=== PATIENT | female | born 1985 | race Caucasian/White ===

== ENCOUNTER 2018-02-19 11:31 | Outpatient (CLI) | payer BC ==
[2018-02-19 12:51] VITALS: BP 131/68; PULSE 90; RESP 16; TEMP 97.6
--- NOTE | 2018-03-11 20:07 | P.MSEPDOC ---
Presenting Problems - Arrival Data Date of Arrival on Unit: 02/19/18 Time of Arrival on Unit: 11:31 Mode of Transport: Ambulatory - Complaint OB-Reason for Admission/Chief Complaint: Possible Onset of Labor Comment: 0800 Medical History - Information : 3 Para: 2 Term: 2 : 0 Abortions: Spontaneous or Elective: 0 Number of Living Children: 2 - Gestational Age Gestational Age by BIGG (wks/days): 38 Weeks and 2 Days Review of Systems - Review of Systems Constitutional: No problems Breast: No problems ENT: No problems Cardiovascular: No problems Respiratory: No problems Gastrointestinal: No problems Genitourinary: No problems Musculoskeletal: No problems Neurological: No problems Skin: No problems Vital Signs - Temperature Temperature: 97.6 F Temperature Source: Temporal Artery Scan - Pulse Right Brachial Pulse Rate: 90 Pulse Assessment Method: Automatic Cuff - Respirations Respiratory Rate: 16 Oxygen Delivery Method: Room Air Oxygen Flow Rate: 99 - Blood Pressure Right Arm Blood Pressure: 131/68 Blood Pressure Mean: 89 Blood Pressure Source: Automatic Cuff Medical Screen Scoring (Pre) - Cervical Exam Dilation: 1-3 cm = 1 - Uterine Contractions Frequency: > or = 36 weeks =2 Duration: > 40 seconds = 2 - Maternal Vital Signs Maternal Temperature: N/A Maternal Blood Pressure: N/A Signs of Preeclampsia: N/A Maternal Respirations: N/A - Pain Assessment Pain Location and Character: Abdomen Pain Scale Used: Numeric (1 - 10) Pain Intensity: 5 Pain Description: *Acute, Tightness Pain Frequency: Intermittent Pain Duration: 4 Pain Duration Units: Hours Pain Behavior: Facial Grimacing Pain Aggravating Factors: Contractions - Maternal Trauma Maternal Trauma: N/A - Assessment Baseline FHR: 135 Heart Rate - NICHD Category: Category I (Normal) = 0 NST: Reactive Position: N/A - Total Score Total Score (Pre): 5 - Level of Risk Level of Risk: Low (0-5) Medical Screen Scoring (Post) - Post Treatment Level of Risk Post Treatment Level of Risk: Low (0-5) Physician Notification (Post) - Physician Notified Physician Notified Date: 02/19/18 Physician Notified Time: 14:25 Spoke With: Annabelle Rubio Order Received: Yes (discharge to home) Disposition - Disposition OB Disposition: Discharge to home, Written follow up instructions reviewed Discharge Date: 02/19/18 Discharge Time: 14:26 I agree with the RN Medical Screening Exam: Yes Risk & Benefit of care provided described in d/c instruction: Yes Diagnosis: FALSE LABOR AT OR AFTER 37 COMPLETED WEEKS OF GESTATION
== END 2018-02-19 14:26 | disposition home or self-care (01) ==
LOC: FBPOP 11:31
PROVIDERS: ATTEND Obstetrics & Gynecology
DX: O47.1 False labor at or after 37 completed weeks of gestation (principal); Z3A.38 38 weeks gestation of pregnancy
CPT/HCPCS: 59025; 99213

== ENCOUNTER 2018-02-20 04:00 | Outpatient (CLI) | payer BC ==
[2018-02-20 05:41] VITALS: BP 119/72; PULSE 81; RESP 16; TEMP 97.5
--- NOTE | 2018-03-11 20:08 | P.MSEPDOC ---
Presenting Problems - Arrival Data Date of Arrival on Unit: 02/20/18 Time of Arrival on Unit: 04:03 Mode of Transport: Wheelchair Vital Signs - Temperature Temperature: 97.5 F Temperature Source: Temporal Artery Scan - Pulse Right Brachial Pulse Rate: 81 Pulse Assessment Method: Automatic Cuff - Respirations Respiratory Rate: 16 Oxygen Delivery Method: Room Air - Blood Pressure Right Arm Blood Pressure: 119/72 Blood Pressure Mean: 87 Blood Pressure Source: Automatic Cuff Medical Screen Scoring (Post) - Cervical Exam Dilation: 1-3 cm = 1 Effacement: More than 50% = 2 Membranes: Intact - Uterine Contractions Frequency: > or = 36 weeks =2 Duration: > 40 seconds = 2 Intensity: Contraction palpated strong = 1 - Maternal Vital Signs Maternal Temperature: N/A - Pain Assessment Pain Location and Character: Abdomen Pain Scale Used: Numeric (1 - 10) Pain Intensity: 7 Pain Management Goal: 2 Pain Description: *Acute, Cramping Pain Radiation Location: no Pain Frequency: Frequent Pain Duration: 3 Pain Duration Units: Hours Pain Behavior: Vocalization Pain Aggravating Factors: Contractions - Maternal Trauma Maternal Trauma: N/A - Assessment Heart Rate: 135 Heart Rate - NICHD Category: Category I (Normal) = 0 NST: Reactive - Total Score Total Score (Post): 8 - Post Treatment Level of Risk Post Treatment Level of Risk: Medium (6-9) Physician Notification (Post) - Physician Notified Physician Notified Date: 02/20/18 Physician Notified Time: 05:20 Spoke With: Annabelle Rubio Order Received: No - Notification Comment Comment: D/c home, no cervical change. Disposition - Disposition OB Disposition: Discharge to home, Written follow up instructions reviewed Discharge Date: 02/20/18 Discharge Time: 05:20 I agree with the RN Medical Screening Exam: Yes Risk & Benefit of care provided described in d/c instruction: Yes Diagnosis: FALSE LABOR AT OR AFTER 37 COMPLETED WEEKS OF GESTATION
== END 2018-02-20 05:25 | disposition home or self-care (01) ==
LOC: FBPOP 04:00
PROVIDERS: ATTEND Obstetrics & Gynecology
DX: O47.1 False labor at or after 37 completed weeks of gestation (principal); Z3A.00 Weeks of gestation of pregnancy not specified
CPT/HCPCS: 59025; 99213

== ENCOUNTER 2018-03-03 09:31 | Inpatient (IN) | payer BC ==
[2018-03-09] MEDS: LACTATED RINGERS 1,000 ML IV SCH ×2 (06:05→10:11)
[2018-03-09] MEDS ORDERED: TERBUTALINE 1 MG/ML VIAL SQ PRN (06:11)
[2018-03-09] MEDS ORDERED: CARBOPROST TROMETHAMINE 250 MCG/ML 1 ML AMP IM PRN (06:11)
[2018-03-09] MEDS ORDERED: AMPICILLIN 2,000 MG in SODIUM CHLORIDE 0.9% 100 ML IVPB STA (06:11)
[2018-03-09] MEDS ORDERED: OXYTOCIN 10 UNIT/ML 1 ML VIAL IM PRN (06:11)
[2018-03-09] MEDS ORDERED: OXYTOCIN 20 UNITS/1000 ML NS 1,000 ML IV SCH ×2 (06:11→12:38)
[2018-03-09] MEDS ORDERED: METHYLERGONOVINE 0.2 MG/ML 1 ML AMP IM PRN (06:11)
[2018-03-09] MEDS ORDERED: LIDOCAINE 0.5% (PF) 5 MG/ML (50 ML SDV) SQ PRN (06:11)
[2018-03-09 06:23] LABS: Basophils % (A) 0 %; Eosinophils # (A) 0.1 k/uL (0-0.7); Eosinophils % (A) 1 %; HCT 38.5 % (34.0-46.0); Lymphocytes # (A) 1.8 k/uL (1.0-4.8); Lymphocytes % (A) 33 %; MCH 29.7 pg (25.0-35.0); MCHC 33.9 g/dL (31.0-37.0); MCV 87.8 fL (80.0-100.0); Mean Platelet Volume 7.6; Monocytes # (A) 0.3 k/uL (0-1.0); Monocytes % (A) 6 %; Neutrophils # (A) 3.1 k/uL (1.3-7.7); Neutrophils % (A) 57 %; Platelet Count 210 k/uL (150-450); RBC 4.38 m/uL (3.80-5.40); RDW 12.9 % (11.5-15.5); WBC 5.5 k/uL (3.8-10.6)
--- NOTE | 2018-03-09 06:34 | P.HPOB ---
History of Present Illness H&P Date: 03/09/18 Chief Complaint: Induction of labor due to postdates This patient is a pleasant 32-year-old 3 para 2 female estimated date of confinement 03/03/2018 estimated gestational age 40-6/7 weeks gestation who is admitted to labor and delivery for requested induction of labor due to postdates . She is care is complicated by advanced for maternal age, she has declined any referral to maternal- medicine for genetic evaluation. She has been watched with growth ultrasounds and nonstress tests which have been normal. She did have an abnormal Glucola but a normal three-hour gtt. Patient at this time has requested induction of labor. Review of Systems Gastrointestinal: Reports heartburn Genitourinary: Reports Menstruation: Reports amenorrhea Past Medical History Additional Past Medical History / Comment(s): Narcolepsy. Patient is had 2 term vaginal deliveries 7 lbs. 2 oz. and 7 lbs. 3 oz. History of Any Multi-Drug Resistant Organisms: None Reported Past Surgical History: Orthopedic Surgery Additional Past Surgical History / Comment(s): bunion surgery bilateral feet, and wisdom teeth removed. Patient had a LEEP procedure done prior to her first . Past Anesthesia/Blood Transfusion Reactions: No Reported Reaction Past Psychological History: No Psychological Hx Reported Smoking Status: Never smoker Past Alcohol Use History: None Reported Past Drug Use History: None Reported - Past Family History Father Family Medical History: Diabetes Mellitus, Hypertension Medications and Allergies Home Medications Medication Instructions Recorded Confirmed Type Cholecalciferol [Vitamin D3] 1,000 unit PO DAILY 03/24/16 02/20/18 History Dextroamphetamine/Amphetamine 15 mg PO DAILY 03/24/16 02/20/18 History [Adderall] Pnv,Calcium 72/Iron/Folic Acid 1 each PO DAILY 03/24/16 02/20/18 History [ Plus Tablet] Allergies Allergy/AdvReac Type Severity Reaction Status Date / Time diphenhydramine AdvReac Confusion Verified 03/09/18 06:11 [From Benadryl] Exam Intake and Output 03/08/18 03/08/18 03/09/18 14:59 22:59 06:59 Other: Weight 75.75 kg - OBG Physical Exam Abdomen: bowel sounds normal, no diffuse tenderness, no bruit present, no guarding noted, no hepatomegaly, no splenomegaly, no mass Vulva: both: normal Vagina: normal moisture, no discharge Cervix: no lesion (Cervix is 3-4 cm dilated 80% effaced -2 station.), no discharge Uterus: enlarged (Fundal height is consistent with a term .) Results blood work shows she is O positive, rubella immune, RPR nonreactive, hepatitis B negative, Glucola was 206 with a normal three-hour gtt., growth ultrasounds been normal, group B strep was positive. Assessment and Plan Assessment: This is a pleasant 33-year-old 3 para 2 female 40-6/7 weeks gestation is admitted to labor and delivery for postdates induction of labor. Patient has a positive group B strep culture and therefore will be given IV antibiotics and Pitocin induction per protocol. Anticipate vaginal delivery. (1) Post-dates Current Visit: Yes Status: Acute Code(s): O48.0 - POST-TERM SNOMED Code(s): 82962298 (2) Group B streptococcal carriage complicating Current Visit: Yes Status: Acute Code(s): O99.820 - STREPTOCOCCUS B CARRIER STATE COMPLICATING SNOMED Code(s): 227705144427127 (3) Elderly multigravida in third trimester Current Visit: Yes Status: Acute Code(s): O09.523 - SUPERVISION OF ELDERLY MULTIGRAVIDA, THIRD TRIMESTER SNOMED Code(s): 550297197
[2018-03-09 07:14] VITALS: BMI 26.9
[2018-03-09] MEDS ORDERED: ROPIVACAINE 100 MG, fentaNYL (PF) 200 MCG in SODIUM CHLORIDE 0.9% 76 ML EPIDURAL ONE ×2 (09:53→12:53)
[2018-03-09] MEDS ORDERED: AMPICILLIN 1,000 MG in SODIUM CHLORIDE 0.9% 50 ML IVPB SCH (10:00)
[2018-03-09] MEDS ORDERED: diphenhydrAMINE 50 MG/ML 1 ML VIAL IVP PRN (12:38)
[2018-03-09] MEDS ORDERED: SIMETHICONE 80 MG CHEWABLE PO PRN (12:38)
[2018-03-09] MEDS ORDERED: WITCH HAZEL 1 EACH MED..PAD TOPICAL PRN (12:38)
[2018-03-09] MEDS ORDERED: diphenhydrAMINE 25 MG CAP PO PRN (12:38)
[2018-03-09] MEDS ORDERED: ACETAMINOPHEN TAB 325 MG TAB PO PRN (12:38)
[2018-03-09] MEDS ORDERED: HYDROCORTISONE 2.5% RECTAL CREAM 30 GM TUBE RECTAL PRN (12:38)
[2018-03-09] MEDS ORDERED: BENZOCAINE/MENTHOL SPRAY 1 GM/SPRAY AEROSOL TOPICAL PRN (12:38)
[2018-03-09] MEDS ORDERED: LANOLIN CREAM 5 GM TUBE TOPICAL PRN (12:38)
[2018-03-09] MEDS ORDERED: ZOLPIDEM 5 MG TAB PO PRN (12:38)
--- NOTE | 2018-03-09 12:42 | P.PROBDLV ---
Vaginal Delivery Note - . Vaginal Delivery Note: Normal spontaneous vaginal delivery viable male infant Apgars 8 and 9 delivery time is 1212 hrs. Please see dictated H&P for intimate details of this patient's admission. In brief summary this is a pleasant 33-year-old 3 para 2 female 40-6/7 weeks gestation admitted to labor and delivery for postdates induction of labor. On admission patient's approximate 4 cm dilated has artificial rupture membranes for clear fluid. Patient's labor is induced with Pitocin per protocol. She did receive antibiotics for positive group B strep culture. Patient's labor progressed she did have an episode after her epidural bradycardia that resolved with discontinuing her Pitocin and position changes. Patient continued to progress and did have 1 other episode of bradycardia but this again resolved with position changes. Patient did not require Pitocin after the epidural was placed. Patient got to complete pushes the head to the perineum. Posterior perineum is supported we have controlled delivery of the infant's head over the intact perineum. Mouth and nares are bulb suctioned. There is no evidence of a nuchal cord. With gentle downward traction we then have deliver the anterior and posterior shoulder and rest this infant's body. This is a vigorous viable male infant Apgars are 8 and 9 delivery time is 1212 hrs. After delivery of the infant the umbilical cord is allowed to pulsate and then doubly clamped and cut. Cord blood is obtained due to oh positive blood type status. Placenta spontaneously delivered intact. Inspection of perineum shows a first-degree posterior laceration is very small repaired with 3-0 Vicryl in the usual fashion. Excellent reapproximation is noted ARE correct 3. There are no complications. and mother stable delivery room.
[2018-03-09] MEDS: SENNOSIDES-DOCUSATE SODIUM 1 EACH TAB PO SCH ×2 (19:49→19:50)
[2018-03-09] MEDS: IBUPROFEN 600 MG TAB PO PRN (19:50)
[2018-03-10 06:07] VITALS: RESP 18
--- NOTE | 2018-03-10 06:57 | P.PNOBGVD ---
Subjective - Subjective Patient reports: Reports appetite normal, Reports voiding normally, Reports pain well controlled, Reports ambulating normally : doing well Objective - Latest Vital Signs Latest vital signs: Vital Signs Temp Pulse Resp BP Pulse Ox 03/10/18 04:00 97.9 F 92 18 122/75 100 03/09/18 20:00 97.6 F 89 18 128/79 100 03/09/18 15:58 97.6 F 75 16 120/59 03/09/18 14:40 81 16 121/62 03/09/18 14:10 76 16 139/59 03/09/18 13:40 76 16 128/61 03/09/18 13:25 97.5 F L 77 16 119/77 03/09/18 13:10 60 16 127/72 03/09/18 12:55 73 16 119/58 03/09/18 12:40 75 16 118/56 Intake and Output 03/09/18 03/09/18 03/10/18 14:59 22:59 06:59 Output Total 100 Balance -100 Output: Estimated Blood Loss 100 Other: # Voids 1 2 - Exam Lungs: bilateral: normal Chest: Normal S1, Normal S2 Extremities: Present: normal Abdomen: Present: normal appearance, soft Uterus: Present: normal, firm Assessment and Plan Assessment: day #1. Patient is resting without complaints wishes to go home. Vital signs are stable she is afebrile. Uterus is firm nontender and she is having normal lochia. My impression this is a normal course. Plan is to continue routine care discharge home later today. (1) Post-dates Current Visit: Yes Status: Acute Code(s): O48.0 - POST-TERM SNOMED Code(s): 25242597 (2) Group B streptococcal carriage complicating Current Visit: Yes Status: Acute Code(s): O99.820 - STREPTOCOCCUS B CARRIER STATE COMPLICATING SNOMED Code(s): 945333914864958 (3) Elderly multigravida in third trimester Current Visit: Yes Status: Acute Code(s): O09.523 - SUPERVISION OF ELDERLY MULTIGRAVIDA, THIRD TRIMESTER SNOMED Code(s): 151435313
--- NOTE | 2018-03-10 07:02 | P.DS ---
Providers Date of admission: 03/09/18 05:45 Expected date of discharge: 03/10/18 Attending physician: Tonny Mitchell Primary care physician: Stated None - Discharge Diagnosis(es) (1) Post-dates Current Visit: Yes Status: Acute (2) Group B streptococcal carriage complicating Current Visit: Yes Status: Acute (3) Elderly multigravida in third trimester Current Visit: Yes Status: Acute Hospital Course: Please see dictated H&P for intimate details of this patient's admission. Brief summary is a pleasant 33-year-old 3 para 2 female 40-6/7 weeks gestation admitted to labor and delivery for postdates induction of labor. Patient is admitted has uncomplicated induction of labor was on have a vaginal delivery viable male please see dictated delivery note. day # 1 patient wishes to go home was felt stable for discharge home follow up with me in 6 weeks. Procedures: Induction of labor normal vaginal delivery Patient Condition at Discharge: Good Plan - Discharge Summary New Discharge Prescriptions: New Ibuprofen [Motrin] 600 mg PO Q6HR PRN #40 tab PRN Reason: Mild Pain Or Fever >= 100.5 No Action Dextroamphetamine/Amphetamine [Adderall] 15 mg PO DAILY Cholecalciferol [Vitamin D3] 1,000 unit PO DAILY Pnv,Calcium 72/Iron/Folic Acid [ Plus Tablet] 1 each PO DAILY Discharge Medication List Cholecalciferol [Vitamin D3] 1,000 unit PO DAILY 03/24/16 [History] Dextroamphetamine/Amphetamine [Adderall] 15 mg PO DAILY 03/24/16 [History] Pnv,Calcium 72/Iron/Folic Acid [ Plus Tablet] 1 each PO DAILY 03/24/16 [ History] Ibuprofen [Motrin] 600 mg PO Q6HR PRN #40 tab 03/10/18 [Rx] Follow up Appointment(s)/Referral(s): Tonny Mitchell MD [STAFF PHYSICIAN] - 04/20/18 2:30 pm Patient Instructions/Handouts: Vaginal Delivery (DC) Activity/Diet/Wound Care/Special Instructions: No intercourse or anything per vagina for 6 weeks. Please call if any fever, chills, excessive vaginal bleeding, and/or abdominal pain. Discharge Disposition: HOME SELF-CARE
[2018-03-10] MEDS: IBUPROFEN 600 MG TAB PO PRN (07:33)
[2018-03-10] MEDS: SENNOSIDES-DOCUSATE SODIUM 1 EACH TAB PO SCH (07:33)
[2018-03-10 09:40] VITALS: BP 107/68; PULSE 88; TEMP 97.6
== END 2018-03-10 13:25 | disposition home or self-care (01) | DRG 806 ==
LOC: 4FBP 03-09 05:45
PROVIDERS: ADMIT Obstetrics & Gynecology; ATTEND Obstetrics & Gynecology
PROC: 10E0XZZ Delivery of Products of Conception, External Approach (ICD-10-PCS; principal; 2018-03-09)
PROC: 3E033VJ Introduction of Other Hormone into Peripheral Vein, Percutaneous Approach (ICD-10-PCS; 2018-03-09)
PROC: 10907ZC Drainage of Amniotic Fluid, Therapeutic from Products of Conception, Via Natural or Artificial Opening (ICD-10-PCS; 2018-03-09)
PROC: 0HQ9XZZ Repair Perineum Skin, External Approach (ICD-10-PCS; 2018-03-09)
PROC: 00HU33Z Insertion of Infusion Device into Spinal Canal, Percutaneous Approach (ICD-10-PCS; 2018-03-09)
PROC: 3E0R3BZ Introduction of Anesthetic Agent into Spinal Canal, Percutaneous Approach (ICD-10-PCS; 2018-03-09)
DX: O48.0 Post-term pregnancy (principal); O99.354 Diseases of the nervous system complicating childbirth; Z37.0 Single live birth; G47.419 Narcolepsy without cataplexy; O99.824 Streptococcus B carrier state complicating childbirth; O76 Abnormality in fetal heart rate and rhythm complicating labor and delivery; O99.62 Diseases of the digestive system complicating childbirth; K92.89 Other specified diseases of the digestive system; O70.0 First degree perineal laceration during delivery; Z3A.40 40 weeks gestation of pregnancy; Z79.899 Other long term (current) drug therapy; Z88.8 Allergy status to other drugs, medicaments and biological substances; Z82.49 Family history of ischemic heart disease and other diseases of the circulatory system; Z83.3 Family history of diabetes mellitus
CPT/HCPCS: 85025; 86850; 86900; 86901

== ENCOUNTER → 2018-11-11 | Outpatient (CLI) | payer BC ==
--- NOTE | 2018-11-11 18:58 | CONS ---
CONSULTATION DATE OF SERVICE: 11/11/2018 33-year-old lady who has been evaluated in Sleep Center for treatment of narcolepsy. HISTORY OF PRESENT ILLNESS/SLEEP-WAKE EVALUATION: Patient has history of narcolepsy for about 13 years. She was diagnosed with narcolepsy in [facility] at that time multiple sleep latency showed 5.2 minutes with 2 sleep onset REM periods. The patient was treated with Adderall with the dose of 15 mg a day. She adjusted the dose up to 30 mg, then patient become and she has stopped using medication. Presently, she is on treatment with Adalat 15 mg XR in the morning. With his dose patient continued to feel sleepy during the day. [place] Sleepiness Scale is 18. She takes naps usually around 2:00 pm and seeing dreams during the nap. Feels refreshed after the nap. SLEEP SCHEDULE: Her sleep schedule on weekdays from 9 p.m. to 5:30 a.m. and on weekends from around 11 p.m. to 7 or 7:30 a.m. FALLING ASLEEP: No problems with falling asleep. She has TV set in bedroom and her son is [id number] presently, so sometimes she wakes up at night because of that. DURING SLEEP: She wakes up at night up to 4 times with 3 episodes of nocturia. No snoring. No any awakenings with dry mouth, choking or gasping for air. Positive history of sleep paralysis. Positive history of hypnagogic hallucinations. No history of cataplexy. PAST MEDICAL HISTORY: Cervical cancer. PAST SURGICAL HISTORY: Status post LEEP. SOCIAL HISTORY: Negative for smoking. Alcohol consumption occasional. FAMILY HISTORY: Hypertension, hyperlipidemia, headaches, diabetes, thyroid problems, sleep apnea. MEDICATIONS: Adderall 15 mg XR once a day, once a day. REVIEW OF SYSTEMS: Awakenings from sleep, sleepiness during the day. PHYSICAL EXAM: A pleasant lady without distress. BP 128/77, HR 74, RR 14, height 5 feet 6 inches, weight 143.6 pounds, temperature 98.8, oxygen saturation at room air 98%. HEENT: Oropharynx short distance between soft palate and posterior pharyngeal wall, but vertically position of soft palate is normal. Slight restriction of nasal breathing. NECK: Supple, no JVD. Thyroid is not palpable. LUNGS Clear to percussion and to auscultation. Good air exchange. No wheezing or rhonchi. HEART S1, S2 regular. No murmurs, gallops, or rubs. ABDOMEN: Soft and nontender. Bowel sounds are present. No organomegaly appreciated. EXTREMITIES: No clubbing or cyanosis. BOOK STORE ASSOCIATE: Awake, alert, and oriented X3. Cranial nerves 2 to 7 intact. There is no fasciculation or atrophy. noted. No focal deficits observed. IMPRESSION: 1. 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 The patient continued to feel sleepy during the day. 2. History of cervical carcinoma. 3. Status post LEEP. 4. Sleep paralysis. PLAN: 1. Patient will continue treatment with Adderall at the present time. 2. The patient will be started on treatment with modafinil with adjustments of the dose to be sure there is no headaches for correction of excessive daytime sleepiness. 3. Sleep hygiene with regular time in bed for 7 - 1/2 hours. 4. Precautions related to driving. No driving if feeling sleepiness. Thank you very much for allowing me to participate in management of your patient. Sincerely, Panda Ruiz MD, PhD, FAASM Diplomat of [place] [employer] [place] [employer] Optical Laboratory Manager of [facility] [place] MMODL / IJN: [id number] /
== END ==
LOC: SLEEP 10:27
PROVIDERS: ATTEND Internal Medicine
DX: G47.419 Narcolepsy without cataplexy (principal); Z85.41 Personal history of malignant neoplasm of cervix uteri; G83.89 Other specified paralytic syndromes

== ENCOUNTER → 2019-04-28 | Outpatient (CLI) | payer BC ==
--- NOTE | 2019-04-28 11:43 | SFUN ---
SLEEP CENTER FOLLOW UP NOTE DATE OF SERVICE: 04/28/2019 A 34-year-old lady who has been followed in the Sleep Center for treatment of narcolepsy. Previously, patient was on treatment with Adderall, but that treatment was stopped because the patient was breast-feeding. Recently, patient was started on treatment with modafinil and at the present time she is taking 1 tablet of modafinil in the morning, which is 200 mg. Her sleep schedule is from 10 p.m. until 7. She is taking her modafinil around 8:30 in the morning and around noon, she started to feel sleepiness again, but she definitely referred that with modafinil she feels better in terms of her alertness than without modafinil. [place] Sleepiness Scale today is 16. Patient had several episodes of headaches, but she is not sure it is related to her medication or not. No clear side effects of modafinil at the present time. CURRENT MEDICATIONS: control pills. PHYSICAL EXAM: Patient in no distress. BP 102/56, HR 80, RR 14, height 5, 6-1/4 inches, weight 142.8, temperature 99.2, oxygen saturation at room air 99%, body mass index 22. OROPHARYNX: Vertically normal position of soft palate, slightly short distance between soft palate and posterior wall. NECK: Supple, no JVD. Thyroid is not palpable. LUNGS: Clear to percussion and to auscultation. Good air exchange. No wheezing or rhonchi. HEART: S1, S2 regular. No murmurs, gallops, or rubs. ABDOMEN: Soft and nontender. Bowel sounds are present. No organomegaly appreciated. EXTREMITIES: No clubbing or cyanosis. SPINNING SUPERVISOR: Awake, alert, and oriented X3. Cranial nerves 2 to 7 intact. There is no fasciculation or atrophy. noted. No focal deficits observed. IMPRESSION: 1. Narcolepsy without cataplexy. Alertness improved on modafinil, but patient still continued to feel sleepiness. She has a low dose of modafinil 200 mg in the morning. 2. History of cervical CA. 3. Status post LEEP. 4. Positive history of sleep paralysis. PLAN: 1. Patient will increase dose of modafinil at 8:30 am up to 2 tablets in the morning. 2. Sleep hygiene with regular time in bed for at least 8 hours. 3. Precautions related to driving. No driving if feeling sleepiness. 4. Followup visit in 2 months to evaluate clinical response and treatment. Sincerely, Panda Ruiz MD, PhD, FAASM Diplomat of [place] [employer] [employer] [place] Alarm Mechanic of [facility] [place] MMODL / DIAMONDN: [id number] /
== END ==
LOC: SLEEP 10:08
PROVIDERS: ATTEND Internal Medicine
DX: G47.419 Narcolepsy without cataplexy (principal); Z85.41 Personal history of malignant neoplasm of cervix uteri; Z98.890 Other specified postprocedural states; Z87.898 Personal history of other specified conditions; Z79.899 Other long term (current) drug therapy

== ENCOUNTER → 2019-07-14 | Outpatient (CLI) | payer BC ==
--- NOTE | 2019-07-14 16:53 | PN ---
PROGRESS NOTE DATE OF SERVICE: 07/14/2019 This patient is a 34-year-old lady who has been followed in Sleep Center for treatment of narcolepsy. At present the patient is on treatment with modafinil. She is taking 1-3/4 tablets of 200 mg in the morning. If she takes 1-1/2 tablets in the morning, which is 300 mg, she feels that it is not fully effective for controlling her alertness. If she takes 2 tablets in the morning, she develops headaches. With 1-3/4 tablets in the morning, she feels better but sometimes may feel a little bit sleepy at 10 or 11 a.m. and around 2 or 3 p.m. Also around 9:30 or 10 a.m. she may feel a little bit nauseous. [place] Sleepiness Scale today is 13. OTHER MEDICATIONS: control pills. PHYSICAL EXAMINATION: GENERAL: A pleasant patient in no distress. VITAL SIGNS: BP 138/77, HR 90, RR 15, height 5 feet 6 inches, weight 144.6 pounds, body mass index 23.2, temperature 97.2, oxygen saturation at room air 100%. HEENT: PERRLA, EOMI. Evaluation of oropharynx showed tongue protrudes midline. NECK: Supple. No JVD. Thyroid is not palpable. LUNGS: Clear to percussion and to auscultation. Good air exchange. No wheezing or rhonchi. HEART: S1, S2 regular. No murmurs, gallops or rubs. ABDOMEN: Soft and nontender. Bowel sounds are present. No organomegaly. EXTREMITIES: No clubbing or cyanosis. VENETIAN BLIND CLEANER AND REPAIRER: Awake, alert, and oriented X3. Cranial nerves 2 to 7 intact. There is no fasciculation or atrophy. noted. No focal deficits observed. IMPRESSION: 1. Narcolepsy without cataplexy. 2. History of cervical CA. 3. Status post LEEP. 4. Episodes of sleep paralysis. PLAN: 1. Patient will continue to take modafinil. The patient will try to split the dose: one tablet at 8 a.m. and 3/4 of a tablet around 9:15. 2. Patient will try additionally to take Adderall 5 mg at 10 a.m. and at 1 p.m. 3. If patient's alertness is uncontrolled, she may take 1-1/2 tablets of modafinil, which is 300 mg; that dose does not create any side effects. 4. Precautions related to driving. No driving if feeling any sleepiness. 5. Sleep hygiene with regular time in bed for at least 7-1/2 to 8 hours. Sincerely, Panda Ruiz MD, PhD, FAASM Diplomat of [place] [employer] [employer] Title I Instructional Assistant of [facility] [place] MMODL / DIAMONDN: [id number] /
== END | disposition home or self-care (01) ==
LOC: SLEEP 14:11
PROVIDERS: ATTEND Internal Medicine
DX: G47.419 Narcolepsy without cataplexy (principal); Z85.41 Personal history of malignant neoplasm of cervix uteri; Z98.890 Other specified postprocedural states; G47.53 Recurrent isolated sleep paralysis; R51 Headache; Z79.3 Long term (current) use of hormonal contraceptives

== ENCOUNTER → 2020-10-25 | Outpatient (CLI) | payer BC ==
--- NOTE | 2020-10-26 06:44 | SFUN ---
SLEEP CENTER FOLLOW UP NOTE DATE OF SERVICE: 10/25/2020 HISTORY OF PRESENT ILLNESS: This 35-year-old lady has been followed in Sleep Center for treatment of narcolepsy. The patient was on treatment with modafinil, but presently because she became modafinil has been stopped. She continues to feel sleepiness during the day. [place] Sleepiness Scale is in very high range of 18. The patient is on regular Adderall during the day. OTHER MEDICATIONS: Dulce, Flonase. PHYSICAL EXAMINATION: GENERAL: Patient in no distress. VITAL SIGNS: BP 130/72, HR 69, RR 12, height 5 feet 6 inches, weight 145.6, body mass is 23.4, temperature 98.0, oxygen saturation on room air 100%. HEENT: PERRLA, EOMI, evaluation of oropharynx showed tongue protrudes midline. NECK: Supple, no JVD. Thyroid is not palpable. LUNGS: Clear to percussion and to auscultation. Good air exchange. No wheezing or rhonchi. HEART: S1, S2 regular. No murmurs, gallops, or rubs. ABDOMEN: Soft and nontender. Bowel sounds are present. No organomegaly appreciated. EXTREMITIES: No clubbing or cyanosis. STENCIL MACHINE OPERATOR: Awake, alert, and oriented X3. Cranial nerves 2 to 7 intact. There is no fasciculation or atrophy. noted. No focal deficits observed. IMPRESSION: 1. 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 2. , 1st trimester. 3. History of cervical cancer, status post LEEP. 4. History of episodes of sleep paralysis. PLAN: 1. I discussed with the patient questionable information about side effects of Adderall on but patient cannot stay without medications, is very sleepy. We will continue with Adderall XR 10 mg once a day. 2. Extreme precautions to driving. No driving if feeling sleepiness. 3. Sleep hygiene with regular time in bed for 7-1/2 to 8-1/2 hours per night at least. 4. Daytime naps permitted. Sincerely, Panda Ruiz MD, PhD, FAASM Diplomat of [place] [employer] [place] [employer] Resource Management Planner of [facility] [place] MMODL / IJN: [id number] /
== END ==
LOC: SLEEP 15:23
PROVIDERS: ATTEND Internal Medicine
DX: O99.351 Diseases of the nervous system complicating pregnancy, first trimester (principal); G47.419 Narcolepsy without cataplexy; Z86.69 Personal history of other diseases of the nervous system and sense organs; Z85.41 Personal history of malignant neoplasm of cervix uteri; Z98.890 Other specified postprocedural states; Z3A.00 Weeks of gestation of pregnancy not specified; Z88.8 Allergy status to other drugs, medicaments and biological substances

== ENCOUNTER → 2020-11-27 | Outpatient (CLI) | payer BC ==
--- NOTE | 2020-11-27 11:50 | US ---
EXAMINATION TYPE: Transabdominal DATE OF EXAM: 11/27/2020 11:25 AM COMPARISON: NONE CLINICAL HISTORY: Z36 Confirm dates. EXAM PERFORMED: Transabdominal (TA) EXAM MEASUREMENTS: GESTATIONAL AGE / DATING Physician Established: (10 weeks/3 days) EDC: 06/22/21 Dates by LMP: (10 weeks/3 days) EDC: 06/22/21 Dates by First Scan: No previous Dates by Current Scan for: (9 weeks/4 days) EDC: 06/28/21 MATERNAL ANATOMY Uterus: 11.0 x 7.3 x 5.3 cm Right Ovary: 2.7 x 3.3 x 2.0 cm Left Ovary: 2.0 x 1.8 x 1.5 Post CDS / Adnexa: wnl Presence of free fluid: no Presence of corpus luteal cyst: right ovary = 1.2 x 1.1 x 1.0 cm Presence of subchorionic bleed: no GESTATION / SURVEY CRL: 2.8 (9 weeks/4 days) MSD: 3.3 (8 weeks/2 days) Yolk Sac (normal less than 6mm): Not seen Heart Rate: 174 bpm Rhythm: Normal IUP: Viable IUP Date of LMP: 09/15/20 Beta HcG (if available): Not available IMPRESSION: Single live intrauterine with estimated gestational age measuring approximately 9 weeks and 4 days by sonographic criteria.
== END | disposition home or self-care (01) ==
LOC: RADUSWWP 10:59
PROVIDERS: ATTEND Obstetrics & Gynecology
DX: Z36.87 Encounter for antenatal screening for uncertain dates (principal); Z3A.09 9 weeks gestation of pregnancy
CPT/HCPCS: 76801

== ENCOUNTER 2021-06-22 12:50 | Inpatient (IN) | payer BC ==
[2021-06-22] MEDS ORDERED: CARBOPROST TROMETHAMINE 250 MCG/ML 1 ML AMP IM PRN (13:51)
[2021-06-22] MEDS ORDERED: LIDOCAINE 0.5% (PF) 5 MG/ML (50 ML SDV) SQ PRN (13:51)
[2021-06-22] MEDS ORDERED: TERBUTALINE 1 MG/ML VIAL SQ PRN (13:51)
[2021-06-22] MEDS ORDERED: METHYLERGONOVINE 0.2 MG/ML 1 ML AMP IM PRN (13:51)
[2021-06-22] MEDS ORDERED: OXYTOCIN 10 UNIT/ML 1 ML VIAL IM PRN (13:51)
[2021-06-22] MEDS ORDERED: AMPICILLIN 2,000 MG in SODIUM CHLORIDE 0.9% 100 ML IVPB STA (13:54)
[2021-06-22] MEDS ORDERED: OXYTOCIN 30 UNITS/500 ML NS 30 UNIT in SALINE 1 500ML.BAG IV SCH ×2 (14:00→23:15)
--- NOTE | 2021-06-22 14:32 | P.HPOB ---
History of Present Illness H&P Date: 06/22/21 Chief Complaint: Contractions. This patient is a 36-year-old 4 para 3 female estimated date of confinement 07/01/2021 estimated gestational age 38-5/7 weeks who presents to labor and delivery with complaints of contractions. Patient's is complicated by first trimester medication exposure(Modafinil) and advanced maternal age. Patient was referred to maternal- medicine for a level III ultrasound cardiac echo. Both of these testings were normal. Patient's subsequent had normal growth ultrasounds and antepartum testing that was normal. Patient presented with complaints of regular painful contractions and has shown cervical change from the office and thought to be in active labor. Patient did have a negative culture for group B strep however has a history of a positive with a previous . Review of Systems Genitourinary: Reports Menstruation: Reports amenorrhea Past Medical History Additional Past Medical History / Comment(s): Narcolepsy. Patient is had 3 term vaginal deliveries 7 lbs. 2 oz. and 7 lbs. 3 oz. History of Any Multi-Drug Resistant Organisms: None Reported Past Surgical History: Orthopedic Surgery Additional Past Surgical History / Comment(s): bunion surgery bilateral feet, and wisdom teeth removed. Patient had a LEEP procedure done prior to her first . Past Anesthesia/Blood Transfusion Reactions: No Reported Reaction Past Psychological History: No Psychological Hx Reported Smoking Status: Never smoker Past Alcohol Use History: None Reported Past Drug Use History: None Reported - Past Family History Father Family Medical History: Diabetes Mellitus, Hypertension Medications and Allergies Home Medications Medication Instructions Recorded Confirmed Type Cholecalciferol [Vitamin D3] 1,000 unit PO DAILY 03/24/16 06/22/21 History Dextroamphetamine/Amphetamine 10 mg PO DAILY 03/24/16 06/22/21 History [Adderall] Pnv,Calcium 72/Iron/Folic Acid 15 each PO DAILY 03/24/16 06/22/21 History [ Plus Tablet] Ibuprofen [Motrin] 600 mg PO Q6HR PRN #40 tab 03/10/18 Rx Allergies Allergy/AdvReac Type Severity Reaction Status Date / Time Sulfa (Sulfonamide Allergy Rash/Hives Verified 06/22/21 13:12 Antibiotics) diphenhydramine AdvReac Mild Confusion Verified 06/22/21 13:11 [From Benadryl] Exam Intake and Output 06/21/21 06/22/21 06/22/21 22:59 06:59 14:59 Other: Weight 82.554 kg - OBG Physical Exam Abdomen: bowel sounds normal, no diffuse tenderness, no bruit present, no guarding noted, no hepatomegaly, no splenomegaly, no mass Vulva: both: normal Vagina: normal moisture, no discharge Cervix: no lesion (Cervix is 3 cm started 50% effaced -1 station.), no discharge Uterus: enlarged Results blood work shows she is O positive, rubella immune, RPR nonreactive, hepatitis B negative, ultrasounds have been normal including cardiac echo, group B strep was negative (history of positive group B strep previous ) Assessment and Plan Assessment: This is a 36-year-old 4 para 3 female 38-5/7 weeks gestation admitted to labor and delivery in early labor. Patient has a history of positive strep with previous . Plan is antibiotic prophylaxis and anticipate vaginal delivery. (1) 38 weeks gestation of Current Visit: Yes Status: Acute Code(s): Z3A.38 - 38 WEEKS GESTATION OF SNOMED Code(s): 24287577 (2) Elderly multigravida in third trimester Current Visit: No Status: Acute Code(s): O09.523 - SUPERVISION OF ELDERLY MULTIGRAVIDA, THIRD TRIMESTER SNOMED Code(s): 158230519 (3) Group B streptococcal carriage complicating Current Visit: No Status: Acute Code(s): O99.820 - STREPTOCOCCUS B CARRIER STATE COMPLICATING SNOMED Code(s): 927122017388439 (4) Normal labor Current Visit: Yes Status: Acute Code(s): O80 - ENCOUNTER FOR FULL-TERM UNCOMPLICATED DELIVERY; Z37.9 - OUTCOME OF DELIVERY, UNSPECIFIED SNOMED Code(s): 76492087
[2021-06-22 14:55] LABS: Basophils % (A) 0 %; Eosinophils % (A) 1 %; HGB 13.1 gm/dL (11.4-16.0); Lymphocytes # (A) 1.2 k/uL (1.0-4.8); Lymphocytes % (A) 21 %; MCH 29.5 pg (25.0-35.0); MCHC 32.8 g/dL (31.0-37.0); MCV 89.9 fL (80.0-100.0); Mean Platelet Volume 8.1; Monocytes # (A) 0.3 k/uL (0-1.0); Monocytes % (A) 5 %; Neutrophils % (A) 69 %; Platelet Count 225 k/uL (150-450); RBC 4.45 m/uL (3.80-5.40); RDW 13.5 % (11.5-15.5); WBC 5.7 k/uL (3.8-10.6)
[2021-06-22] MEDS: LACTATED RINGERS 1,000 ML IV SCH ×3 (15:00→21:05)
[2021-06-22] MEDS: AMPICILLIN 1,000 MG in SODIUM CHLORIDE 0.9% 50 ML IVPB SCH ×2 (18:25→22:30)
--- NOTE | 2021-06-22 22:40 | P.MSEPDOC ---
Presenting Problems - Arrival Data Date of Arrival on Unit: 06/22/21 Time of Arrival on Unit: 12:59 Mode of Transport: Ambulatory - Complaint OB-Reason for Admission/Chief Complaint: Other Comment: pt c/o contractions q 4 minutes apart and no sure whether shes leaking fluid Medical History - Information : 4 Para: 3 Term: 3 : 0 Abortions: Spontaneous or Elective: 0 Number of Living Children: 3 - Gestational Age Gestational Age by BIGG (wks/days): 38 Weeks and 5 Days Review of Systems - Review of Systems Constitutional: No problems Breast: No problems ENT: No problems Cardiovascular: No problems Respiratory: No problems Gastrointestinal: No problems Genitourinary: No problems Musculoskeletal: No problems Neurological: No problems Skin: No problems Vital Signs - Temperature Temperature: 98 F Temperature Source: Oral - Pulse Right Brachial Pulse Rate: 88 Pulse Assessment Method: Automatic Cuff - Respirations Respiratory Rate: 16 Oxygen Delivery Method: Room Air O2 Sat by Pulse Oximetry: 97 - Blood Pressure Right Arm Blood Pressure: 143/73 Blood Pressure Mean: 96 Blood Pressure Source: Automatic Cuff Medical Screen Scoring - Cervical Exam Dilation (cm): 2 Effacement (%): 70 Station: -1 Membranes: Intact - Assessment - Baby A Baseline FHR: 150 Heart Rate - NICHD Category: Category I (Normal) Physician Notification - Physician Notified Physician Notified Date: 06/22/21 Physician Notified Time: 13:15 Physician: dr cardoso New Order Received: Yes - Notification Comment Comment: pt admitted for labor Maternal Triage Index - Non-Urgent/Priority 4 Non-Urgent Priority 4: Yes Criteria Met for Priority 4: dr cardoso in department and vaginal exam 2-3 cm gave pt an option to go home for awhile or stay and have water broke. pt opt to have water broke Disposition - Disposition OB Disposition: Admit I agree with the RN Medical Screening Exam: Yes Case reviewed; plan agreed upon as documented in EMR&OBIX.: Yes Diagnosis: ENCOUNTER FOR FULL-TERM UNCOMPLICATED DELIVERY
[2021-06-22] MEDS ORDERED: bisacodyL 10 MG SUPP RECTAL PRN (23:12)
[2021-06-22] MEDS ORDERED: SIMETHICONE 80 MG CHEWABLE PO PRN (23:12)
[2021-06-22] MEDS ORDERED: LANOLIN CREAM 5 GM TUBE TOPICAL PRN (23:12)
[2021-06-22] MEDS ORDERED: diphenhydrAMINE 25 MG CAP PO PRN (23:12)
[2021-06-22] MEDS ORDERED: ZOLPIDEM 5 MG TAB PO PRN (23:12)
[2021-06-22] MEDS ORDERED: HYDROCORTISONE 2.5% RECTAL CREAM 30 GM TUBE RECTAL PRN (23:12)
[2021-06-22] MEDS ORDERED: BENZOCAINE/MENTHOL SPRAY 1 GM/SPRAY AEROSOL TOPICAL PRN (23:12)
[2021-06-22] MEDS ORDERED: diphenhydrAMINE 50 MG/ML 1 ML VIAL IVP PRN (23:12)
--- NOTE | 2021-06-22 23:16 | P.PROBDLV ---
Vaginal Delivery Note - . Vaginal Delivery Note: Normal vaginal delivery viable male infant Apgars 9 and 9 delivery time is 20-54 hours. Please see dictated H&P for intimate details of this patient's admission. Brief summary this is a pleasant 36-year-old 4 para 3 female 38-5/7 weeks' gestation who is admitted to labor and delivery complaints of contractions found to be in early labor. Patient does have a history of positive strep with a previous therefore is given IV antibiotics. She is artificial rupture membranes at 3-4 cm dilated for clear fluid. Labor progresses and she does get some augmentation. At approximately 5-6 cm she requested epidural which is given with good relief. Patient quickly thereafter progresses to complete pushes a proximally 2 times pushes the head to the perineum. Posterior perineum is supported have controlled delivery of the 's head over the intact perineum. Mouth and nares are bulb suctioned. 's head is straight occiput anterior presentation. There is a nuchal cord which is reduced. With gentle downward traction we then have deliver the anterior and posterior shoulder and rest this 's body. This is a vigorous viable male Apgars are 9 and 9 delivery time is 20-54 hours. appears grossly normal with the exceptions of some facial bruising from delivery. is laid on the mother's abdomen. After the cord is done pulsating is doubly clamped and cut appears to be trivascular. The placenta is then spontaneously delivered intact. Estimated blood loss approximately 100 mL. There is a small first- degree posterior laceration which is repaired with 3-0 Vicryl in the usual fashion. Excellent reapproximation is noted. There are no complications. All counts correct 3. and mother are stable delivery room.
--- NOTE | 2021-06-23 06:15 | P.PNOBGVD ---
Subjective - Subjective Patient reports: Reports appetite normal, Reports voiding normally, Reports pain well controlled, Reports ambulating normally : doing well Objective - Latest Vital Signs Latest vital signs: Vital Signs Temp Pulse Resp BP Pulse Ox 06/23/21 03:30 98 F 84 16 101/61 06/23/21 01:05 98.3 F 93 16 114/53 06/23/21 00:35 88 16 109/53 06/23/21 00:05 108 H 16 119/61 06/23/21 00:00 108 H 16 06/22/21 23:50 93 16 123/88 06/22/21 23:35 83 16 119/62 06/22/21 23:20 87 16 111/59 06/22/21 23:05 97.8 F 87 16 111/55 06/22/21 22:40 98 F 88 16 143/73 97 06/22/21 15:12 98 F 88 16 143/73 97 06/22/21 14:27 98 F 88 16 143/78 97 Intake and Output 06/22/21 06/22/21 06/23/21 14:59 22:59 06:59 Output Total 200 Balance -200 Output: Urine 100 Estimated Blood Loss 100 Other: # Voids 1 1 Weight 82.554 kg - Exam Lungs: bilateral: normal Chest: Normal S1, Normal S2 Extremities: Present: normal Abdomen: Present: normal appearance, soft Uterus: Present: normal, firm Assessment and Plan Assessment: Post day #1. Patient is resting without new complaints. Vital signs are stable and she is afebrile. Uterus is firm nontender she's having normal lochia. My impression this is a normal course. Plan is to continue routine care discharge home tomorrow. (1) 38 weeks gestation of Current Visit: Yes Status: Acute Code(s): Z3A.38 - 38 WEEKS GESTATION OF SNOMED Code(s): 07872031 (2) Elderly multigravida in third trimester Current Visit: No Status: Acute Code(s): O09.523 - SUPERVISION OF ELDERLY MULTIGRAVIDA, THIRD TRIMESTER SNOMED Code(s): 850894378 (3) Group B streptococcal carriage complicating Current Visit: No Status: Acute Code(s): O99.820 - STREPTOCOCCUS B CARRIER STATE COMPLICATING SNOMED Code(s): 951775889887998 (4) Normal labor Current Visit: Yes Status: Acute Code(s): O80 - ENCOUNTER FOR FULL-TERM UNCOMPLICATED DELIVERY; Z37.9 - OUTCOME OF DELIVERY, UNSPECIFIED SNOMED Code(s): 47702486
[2021-06-23] MEDS: SENNOSIDES-DOCUSATE SODIUM 1 EACH TAB PO SCH ×2 (08:15→19:43)
[2021-06-23] MEDS: IBUPROFEN 600 MG TAB PO PRN ×3 (08:15→19:43)
[2021-06-23] MEDS: ACETAMINOPHEN TAB 325 MG TAB PO PRN ×2 (10:11→16:08)
[2021-06-23] MEDS ORDERED: ROPIVACAINE 100 MG, fentaNYL (PF). 200 MCG in SODIUM CHLORIDE 0.9% 76 ML EPIDURAL ONE (15:45)
[2021-06-23 20:12] VITALS: RESP 16
[2021-06-24] MEDS: IBUPROFEN 600 MG TAB PO PRN ×2 (02:10→08:26)
--- NOTE | 2021-06-24 07:01 | P.PNOBGVD ---
Subjective - Subjective Patient reports: Reports appetite normal, Reports voiding normally, Reports pain well controlled, Reports ambulating normally : doing well Objective - Latest Vital Signs Latest vital signs: Vital Signs Temp Pulse Resp BP Pulse Ox 06/23/21 23:54 98.4 F 73 16 107/63 06/23/21 20:00 98.3 F 77 16 108/65 06/23/21 16:00 97.8 F 95 18 113/75 98 06/23/21 11:51 98.1 F 78 18 108/68 97 06/23/21 08:00 97 F L 87 18 101/43 98 Intake and Output 06/23/21 06/24/21 06/24/21 22:59 06:59 14:59 Other: # Voids 1 - Exam Lungs: bilateral: normal Chest: Normal S1, Normal S2 Extremities: Present: normal Abdomen: Present: normal appearance, soft Uterus: Present: normal, firm Assessment and Plan Assessment: Post day #2. Patient is resting without complaints. Baby is having some jaundice issues but otherwise doing well. Vital signs are stable and she is afebrile. Uterus is firm nontender and she is having normal lochia. My impre ssion this is a normal course. Plan is to continue routine care discharge home later today (1) 38 weeks gestation of Current Visit: Yes Status: Acute Code(s): Z3A.38 - 38 WEEKS GESTATION OF SNOMED Code(s): 73862574 (2) Elderly multigravida in third trimester Current Visit: No Status: Acute Code(s): O09.523 - SUPERVISION OF ELDERLY MULTIGRAVIDA, THIRD TRIMESTER SNOMED Code(s): 191642824 (3) Group B streptococcal carriage complicating Current Visit: No Status: Acute Code(s): O99.820 - STREPTOCOCCUS B CARRIER STATE COMPLICATING SNOMED Code(s): 606823226428115 (4) Normal labor Current Visit: Yes Status: Acute Code(s): O80 - ENCOUNTER FOR FULL-TERM UNCOMPLICATED DELIVERY; Z37.9 - OUTCOME OF DELIVERY, UNSPECIFIED SNOMED Code(s): 86253783
--- NOTE | 2021-06-24 07:07 | P.DS ---
Providers Date of admission: 06/22/21 13:48 Expected date of discharge: 06/24/21 Attending physician: Tonny Mitchell Primary care physician: Stated None - Discharge Diagnosis(es) (1) 38 weeks gestation of Current Visit: Yes Status: Acute (2) Elderly multigravida in third trimester Current Visit: No Status: Acute (3) Group B streptococcal carriage complicating Current Visit: No Status: Acute (4) Normal labor Current Visit: Yes Status: Acute Hospital Course: Please see dictated H&P for intimate details of this patient's admission. Brief summary this is a pleasant 36-year-old 4 para 3 female 38-5/7 weeks who is admitted to labor and delivery in active labor. Patient goes on have a vaginal delivery viable male infant. Please see dictated delivery note. day #1 patient is doing well and on day #2 she is felt be stable for discharge home follow up with me in 6 weeks. Procedures: Normal spontaneous vaginal delivery Patient Condition at Discharge: Good Plan - Discharge Summary New Discharge Prescriptions: Continue Ibuprofen [Motrin] 600 mg PO Q6HR PRN 30 Days #40 tab PRN Reason: Pain No Action Dextroamphetamine/Amphetamine [Adderall] 10 mg PO DAILY Cholecalciferol [Vitamin D3] 1,000 unit PO DAILY Pnv,Calcium 72/Iron/Folic Acid [ Plus Tablet] 15 each PO DAILY Discharge Medication List Cholecalciferol [Vitamin D3] 1,000 unit PO DAILY 03/24/16 [History] Dextroamphetamine/Amphetamine [Adderall] 10 mg PO DAILY 03/24/16 [History] Pnv,Calcium 72/Iron/Folic Acid [ Plus Tablet] 15 each PO DAILY 03/24/16 [History] Ibuprofen [Motrin] 600 mg PO Q6HR PRN 30 Days #40 tab 06/24/21 [Rx] Follow up Appointment(s)/Referral(s): Tonny Mitchell MD [STAFF PHYSICIAN] - 6 Weeks Patient Instructions/Handouts: Vaginal Delivery (DC) Activity/Diet/Wound Care/Special Instructions: No intercourse or anything per vagina for 6 weeks. Please call if any fever, chills, excessive vaginal bleeding, and/or abdominal pain Discharge Disposition: HOME SELF-CARE
[2021-06-24] MEDS: SENNOSIDES-DOCUSATE SODIUM 1 EACH TAB PO SCH (08:26)
[2021-06-24 15:16] VITALS: BP 117/74; PULSE 74; TEMP 98.2
== END 2021-06-24 18:30 | disposition home or self-care (01) | DRG 807 ==
LOC: FBPOP 12:50 → 4FBP 13:48
PROVIDERS: ADMIT Obstetrics & Gynecology; ATTEND Obstetrics & Gynecology
PROC: 10E0XZZ Delivery of Products of Conception, External Approach (ICD-10-PCS; principal; 2021-06-22)
PROC: 10907ZC Drainage of Amniotic Fluid, Therapeutic from Products of Conception, Via Natural or Artificial Opening (ICD-10-PCS; 2021-06-22)
PROC: 0HQ9XZZ Repair Perineum Skin, External Approach (ICD-10-PCS; 2021-06-22)
DX: O99.824 Streptococcus B carrier state complicating childbirth (principal); Z37.0 Single live birth; O69.81X0 Labor and delivery complicated by cord around neck, without compression, not applicable or unspecified; O70.0 First degree perineal laceration during delivery; Z3A.38 38 weeks gestation of pregnancy; Z88.2 Allergy status to sulfonamides; Z88.8 Allergy status to other drugs, medicaments and biological substances
CPT/HCPCS: 59025; 84112; 85025; 86850; 86900; 86901; 99213

== ENCOUNTER → 2022-01-02 | Outpatient (CLI) | payer BC | LOC: SLEEP 10:08 | PROVIDERS: ATTEND Internal Medicine | DX: G47.33 Obstructive sleep apnea (adult) (pediatric) (principal); Z88.8 Allergy status to other drugs, medicaments and biological substances; Z88.2 Allergy status to sulfonamides ==

== ENCOUNTER → 2022-04-02 | Outpatient (CLI) | payer BC ==
--- NOTE | 2022-04-02 11:42 | P.PN ---
Subjective DATE: 04/02/2022 FOLLOW UP VISIT. Patient returned to sleep center for follow-up visit related to treatment of significant excessive daytime sleepiness secondary to narcolepsy. Presently patient is on treatment with Adderall 10 mg extended release once a day. With this regimen patient mostly able to control sure alertness during the day, but sometimes she still may feel some sleepiness. MAPS have been checked. Risk indicators in normal range. . [place] sleepiness scale is 13 today. No side effects of Adderall. MEDICATIONS:1. Adderall XL 10 mg once a day 2. Polyvitamins During physical exam: GENERAL: A pleasant patient without any distress. VITAL SIGNS: BP 126/51, HR 74, RR 16, weight 143, height 5 foot 6 inches, body mass index 23, temperature 97.6, oxygen saturation at room air 98. HEENT: PERRLA, EOMI. NECK: Supple. No JVD. LUNGS: Clear to percussion and to auscultation. Good air exchange. No wheezing or rhonchi. HEART: S1, S2 regular. ABDOMEN: Soft and nontender. EXTREMITIES: No clubbing or cyanosis. FOUNTAIN BRUSH ASSEMBLER: Awake, alert, and oriented x3. No focal deficit. Impressions: 1. Narcolepsy 2. 2. History of episodes of sleep paralysis. 3. History of cervical cancer status post LEEP.. Plan: 1. Patient will continue treatment with Adderall XR 10 mg once a day 2. Sleep hygiene with regular time in bed for at least 8 hours. 3. Daytime naps permitted 4. Precautions related to driving. No driving if feel any sleepiness. Patient is aware about civil and criminal liability for unsafe driving, promised to follow recommendations. 5. Follow up visit in 4-6 months or earlier if patient has any problems. Thank you very much for allowing me to participate in the management of your patient. Panda Ruiz MD, PhD, FAASM. Diplomat of [place] Board of [employer] Medicine, Sleep Medicine Board by [place] Board of [employer] Medicine Evaporative Cooler Installer of [facility] [place]
== END | disposition home or self-care (01) ==
LOC: SLEEP 10:40
PROVIDERS: ATTEND Internal Medicine
DX: G47.419 Narcolepsy without cataplexy (principal); Z85.41 Personal history of malignant neoplasm of cervix uteri
CPT/HCPCS: 99212

== ENCOUNTER → 2022-10-02 | Outpatient (CLI) | payer OTHER ==
--- NOTE | 2022-10-02 11:55 | P.PN ---
Subjective DATE: 10/02/2022 FOLLOW UP VISIT. Patient returned to sleep center for follow-up visit related to treatment of significant excessive daytime sleepiness secondary to narcolepsy. Patient is on treatment with Adderall extended release 10 mg 1 tablet in the morning. With this regimen patient mostly able to control sure alertness during the day. No side effects of medication. .[place] sleepiness scale is today is 16. MEDICATIONS:1. Adderall extended release 10 mg once a day 2. Vitamins During physical exam: GENERAL: A pleasant patient without any distress. VITAL SIGNS: BP 130/80, HR 84, RR 12 , weight 145.2, temperature 98.2, oxygen saturation at room air 100% . HEENT: PERRLA, EOMI. NECK: Supple. No JVD. LUNGS: Clear to percussion and to auscultation. Good air exchange. No wheezing or rhonchi. HEART: S1, S2 regular. ABDOMEN: Soft and nontender. EXTREMITIES: No clubbing or cyanosis. TELEPRINTER: Awake, alert, and oriented x3. No focal deficit. Impressions: 1. Narcolepsy 2 2. History of episodes of sleep paralysis, no present complaints. 3. History of cervical CA, status post LEEP.. Plan: 1. Patient will continue treatment with Adderall XR 10 mg once a day 2. Sleep hygiene with regular time in bed for at least 8 hours. 3. Follow up visit in 4-6 months or earlier if patient has any problems. 4. Precautions related to driving. No driving if feel any sleepiness. Patient is aware about civil and criminal liability for unsafe driving, promised to follow recommendations. 5. Daytime naps permitted Thank you very much for allowing me to participate in the management of your patient. Panda Ruiz MD, PhD, FAASM. Diplomat of [place] Board of Sleep Medicine, Sleep Medicine Board by [employer] of [employer] Medicine Barrel Assembler of [facility] [place]
== END ==
LOC: SLEEP 11:27
PROVIDERS: ATTEND Internal Medicine
DX: G47.419 Narcolepsy without cataplexy (principal); Z85.41 Personal history of malignant neoplasm of cervix uteri; Z88.2 Allergy status to sulfonamides; Z88.8 Allergy status to other drugs, medicaments and biological substances
CPT/HCPCS: 99212

== ENCOUNTER → 2023-02-16 | Outpatient (CLI) | payer OTHER ==
--- NOTE | 2023-02-17 09:50 | MM ---
Reason for Exam: Screening (asymptomatic). Baseline mammogram. Patient History: Menarche at age 11. First Full-Term at age 29. Late child-bearing (after 30). Premenopausal. Patient has history of breast feeding. Last menstrual period: 02/14/2023 Risk Values: Lizeth 5 year model risk: 0.8%. NCI Lifetime model risk: 13.6%. Prior Study Comparison: Patient's first Mammogram. Tissue Density: The breast tissue is heterogeneously dense. This may lower the sensitivity of mammography. Findings: Analyzed By CAD. There is no suspicious group of microcalcifications or new suspicious mass in either breast. Overall Assessment: Benign, BI-RAD 2 Management: Screening Mammogram of both breasts in 1 year. . Patient should continue monthly self-breast exams. A clinical breast exam by your physician is recommended on an annual basis. This exam should not preclude additional follow-up of suspicious palpable abnormalities. Note on Lizeth scores and lifetime risk: 1. A Lizeth score greater than 3% is considered moderate risk. If this is the case, consider specialist referral to assess eligibility for a risk reducing agent. 2. If overall lifetime risk for the development of breast cancer is 20% or higher, the patient may qualify for future screening with alternating mammogram and breast MRI. Electronically signed and approved by: Devyn Brooks M.D. Radiologis
== END | disposition home or self-care (01) ==
LOC: RADMAMWWP 09:15
PROVIDERS: ATTEND Obstetrics & Gynecology
DX: Z12.31 Encounter for screening mammogram for malignant neoplasm of breast (principal)
CPT/HCPCS: 77067

== ENCOUNTER → 2023-04-23 | Outpatient (CLI) | payer OTHER ==
--- NOTE | 2023-04-23 16:05 | P.PN ---
Subjective DATE: 04/23/2023 FOLLOW UP VISIT. Patient returned to sleep center for follow-up visit related to treatment of significant excessive daytime sleepiness secondary to narcolepsy. Presently patient is on treatment with Adderall XR 10 mg once a day in the morning. Patient is able to control sure alertness during the day but on the second part of the day she developing sleepiness. . [place] sleepiness scale is increased to 18. MEDICATIONS:1. Adderall ER 10 mg once a day in the morning During physical exam: GENERAL: A pleasant patient without any distress. VITAL SIGNS: BP 117/74, HR 82, RR 18 , weight 147.2, temperature 97.7, oxygen saturation at room air 99% . HEENT: PERRLA, EOMI. NECK: Supple. No JVD. LUNGS: Clear to percussion and to auscultation. Good air exchange. No wheezing or rhonchi. HEART: S1, S2 regular. ABDOMEN: Soft and nontender. EXTREMITIES: No clubbing or cyanosis. OPERATIONS INTELLIGENCE: Awake, alert, and oriented x3. No focal deficit. Impressions: 1. Narcolepsy type II 2. History of episodes of sleep paralysis, no present problems. 3. History of cervical cancer, status post LEEP. Plan: 1. Patient will continue treatment with Adderall ER, dose will be increased to 15 mg once a day in the morning. 2. Sleep hygiene with regular time in bed for at least 8 hours. 3. Daytime naps permitted 4. Precautions related to driving. No driving if feel any sleepiness. Patient is aware about civil and criminal liability for unsafe driving, promised to follow recommendations. 5. Follow up visit in 4-6 months or earlier if patient has any problems. Thank you very much for allowing me to participate in the management of your patient. Panda Ruiz MD, PhD, FAASM. Diplomat of [place] Board of Sleep Medicine, Sleep Medicine Board by [place] Board of Internal Medicine Flattening Press Operator of [facility] [place]
== END ==
LOC: 3 N SLEEP 15:33
PROVIDERS: ATTEND Internal Medicine
DX: G47.419 Narcolepsy without cataplexy (principal); Z85.41 Personal history of malignant neoplasm of cervix uteri; Z88.2 Allergy status to sulfonamides; Z88.8 Allergy status to other drugs, medicaments and biological substances; Z86.69 Personal history of other diseases of the nervous system and sense organs
CPT/HCPCS: 99212

== ENCOUNTER → 2023-10-01 | Outpatient (CLI) | payer OTHER ==
[2023-10-01 14:43] VITALS: BP 131/84; PULSE 89; RESP 12; TEMP 98.1
--- NOTE | 2023-10-01 15:04 | P.PN ---
Subjective DATE: 10/01/2023 FOLLOW UP VISIT. Patient returned to sleep center for follow-up visit related to treatment of significant excessive daytime sleepiness secondary to narcolepsy. Patient is on treatment with Adderall 15 mg extended release but with this medication she developed jittering, even if is taking lower dose. . [place] sleepiness scale is an extremely high range of 19. MEDICATIONS:1. Adderall 15 mg extended release once a day During physical exam: GENERAL: A pleasant patient without any distress. VITAL SIGNS: Please see below. HEENT: PERRLA, EOMI. NECK: Supple. No JVD. LUNGS: Clear to percussion and to auscultation. Good air exchange. No wheezing or rhonchi. HEART: S1, S2 regular. ABDOMEN: Soft and nontender. EXTREMITIES: No clubbing or cyanosis. CELLOPHANE CASTING MACHINE REPAIRER: Awake, alert, and oriented x3. No focal deficit. Impressions: 1. Narcolepsy type II 2. History of episodes of sleep paralysis in the past. 3. History of cervical cancer, status post LEEP. Plan: 1. Patient will stop using Adderall. Patient will start armodafinil 150 mg once a day in the morning. 2. Sleep hygiene with regular time in bed for at least 8 hours. 3. Daytime naps permitted 4. Precautions related to driving. No driving if feel any sleepiness. Patient is aware about civil and criminal liability for unsafe driving, promised to follow recommendations. 5. Follow up visit in 4-6 months or earlier if patient has any problems. Thank you very much for allowing me to participate in the management of your patient. Panda Ruiz MD, PhD, FAASM. Diplomat of [place] Board of Sleep Medicine, Sleep Medicine Board by [place] Board of Internal Medicine Oceanology Teacher of [facility] [place] Objective - Vital Signs Vital signs: Vital Signs Temp 98.1 F 10/01/23 14:23 Pulse 89 10/01/23 14:23 Resp 12 10/01/23 14:23 BP 131/84 10/01/23 14:23 Pulse Ox 98 10/01/23 14:23 FiO2 Intake & Output 09/30/23 10/01/23 10/01/23 18:59 06:59 18:59 Weight 67.585 kg
== END ==
LOC: 3 N SLEEP 14:06
PROVIDERS: ATTEND Internal Medicine
DX: G47.419 Narcolepsy without cataplexy (principal); Z85.41 Personal history of malignant neoplasm of cervix uteri; Z88.2 Allergy status to sulfonamides; Z88.8 Allergy status to other drugs, medicaments and biological substances; Z86.69 Personal history of other diseases of the nervous system and sense organs
CPT/HCPCS: 99212

== ENCOUNTER → 2024-05-12 | Outpatient (CLI) | payer OTHER ==
[2024-05-12 11:18] VITALS: BP 134/82; PULSE 80; RESP 16; TEMP 98.1
--- NOTE | 2024-05-12 11:41 | P.PROGSL ---
Subjective DATE: 05/12/2024 FOLLOW UP VISIT. Patient returned to sleep center for follow-up visit related to treatment of significant excessive daytime sleepiness secondary to narcolepsy. Presently patient is on modafinil 200 mg once a day in the morning if this regimen patient is able to control his alertness during the day. No side effects. No headache s. [place] sleepiness scale is 13, which showed improvements comparing with previous visit when it was 19. MEDICATIONS: Please see below During physical exam: GENERAL: A pleasant patient without any distress. VITAL SIGNS: Please see below, weight 165 pounds BMI 26.6. HEENT: VANNARCODY, EOMI. NECK: Supple. No JVD. LUNGS: Clear to percussion and to auscultation. Good air exchange. No wheezing or rhonchi. HEART: S1, S2 regular. ABDOMEN: Soft and nontender. EXTREMITIES: No clubbing or cyanosis. COUNTY SURVEYOR: Awake, alert, and oriented x3. No focal deficit. Impressions: 1. Narcolepsy 2 2. History of sleep paralysis. 3. History of cervical cancer treated by LEEP. Plan: 1. Patient will continue treatment with modafinil 200 mg 1 tablet in the morning. 2. Sleep hygiene with regular time in bed for at least 8 hours. 3. Daytime naps permitted 4. Precautions related to driving. No driving if feel any sleepiness. Patient is aware about civil and criminal liability for unsafe driving, promised to follow recommendations. 5. Follow up visit in 6 months or earlier if patient has any problems. Thank you very much for allowing me to participate in the management of your patient. Panda Ruiz MD, PhD, FAASM. Diplomat of [place] [employer], Sleep Medicine Board by [place] [employer] Make Up Worker of [facility] [place] cc: Bebeto Chávez MD Objective - Vital Signs Vital Signs: Vital Signs Temp 98.1 F 05/12/24 11:17 Pulse 80 05/12/24 11:17 Resp 16 05/12/24 11:17 BP 134/82 05/12/24 11:17 Pulse Ox 100 05/12/24 11:17 FiO2 Intake & Output 05/11/24 05/12/24 05/12/24 18:59 06:59 18:59 Weight 74.843 kg Home Medications: Home Medications Medication Instructions Recorded Confirmed Type Cholecalciferol [Vitamin D3] 1,000 unit PO DAILY 03/24/16 06/22/21 History Dextroamphetamine/Amphetamine 10 mg PO DAILY 03/24/16 06/22/21 History [Adderall] Pnv,Calcium 72/Iron/Folic Acid 15 each PO DAILY 03/24/16 06/22/21 History [ Plus Tablet] Ibuprofen [Motrin] 600 mg PO Q6HR PRN 30 Days #40 tab 06/24/21 Rx Dextroamphetamine/Amphetamine 10 mg PO DAILY 30 Days #30 tab 05/28/22 Rx [Adderall] Dextroamphetamine/Amphetamine 10 mg PO DAILY 30 Days #30 cap 06/12/22 Rx [Adderall Xr 10 mg Capsule] Dextroamphetamine/Amphetamine 10 mg PO DAILY 30 Days #30 tab 11/12/22 Rx [Adderall] modafiniL [Provigil] 200 mg PO DAILY 10/01/23 10/01/23 History
== END ==
LOC: 3 N SLEEP 10:42
PROVIDERS: ATTEND Internal Medicine
DX: G47.419 Narcolepsy without cataplexy (principal); Z85.41 Personal history of malignant neoplasm of cervix uteri; Z88.2 Allergy status to sulfonamides; Z88.8 Allergy status to other drugs, medicaments and biological substances
CPT/HCPCS: 99212

== ENCOUNTER → 2024-05-18 | Outpatient (CLI) | payer OTHER | END | disposition home or self-care (01) | LOC: LABWHC1 10:58 | PROVIDERS: ATTEND Physician Assistant | DX: T78.2XXA Anaphylactic shock, unspecified, initial encounter (principal) | CPT/HCPCS: 36415; 83520 ==

== ENCOUNTER → 2024-06-30 | Outpatient (CLI) | payer BC ==
--- NOTE | 2024-06-30 12:09 | MM ---
Reason for Exam: Screening (asymptomatic). Last mammogram was performed 1 year(s) and 4 month(s) ago. Patient History: Menarche at age 11. First Full-Term at age 29. Late child-bearing (after 30). Premenopausal. Patient has history of breast feeding. Last menstrual period: 06/12/2024 Risk Values: Lizeth 5 year model risk: 0.8%. NCI Lifetime model risk: 13.5%. Prior Study Comparison: 02/16/2023 Bilateral MG screening mammo w CAD, [facility]. Tissue Density: The breasts are heterogeneously dense, which may obscure small masses. Findings: Analyzed By CAD. Bilateral areas of asymmetric density remain unchanged. There is no suspicious group of microcalcifications or new suspicious mass in either breast. Overall Assessment: Benign, BI-RAD 2 Management: Screening Mammogram of both breasts in 1 year. Patient should continue monthly self-breast exams. A clinical breast exam by your physician is recommended on an annual basis. This exam should not preclude additional follow-up of suspicious palpable abnormalities. Note on Lizeth scores and lifetime risk: 1. A Lizeth score greater than 3% is considered moderate risk. If this is the case, consider specialist referral to assess eligibility for a risk reducing agent. 2. If overall lifetime risk for the development of breast cancer is 20% or higher, the patient may qualify for future screening with alternating mammogram and breast MRI. [facility], , 06/30/2024 12:06 PM. Electronically signed and approved by: Ashanti Cordova M.D. Radiologist
== END | disposition home or self-care (01) ==
LOC: RADMAMWWP 10:37
PROVIDERS: ATTEND Obstetrics & Gynecology
DX: Z12.31 Encounter for screening mammogram for malignant neoplasm of breast (principal); R92.333 Mammographic heterogeneous density, bilateral breasts
CPT/HCPCS: 77067

== ENCOUNTER → 2024-11-24 | Outpatient (CLI) | payer BC ==
[2024-11-24 11:13] VITALS: BP 132/80; PULSE 80; RESP 16; TEMP 97.9
--- NOTE | 2024-11-24 11:27 | P.PROGSL ---
Subjective DATE: 11/24/2024 FOLLOW UP VISIT. Patient returned to sleep center for follow-up visit related to treatment of significant excessive daytime sleepiness secondary to narcolepsy. Patient is on treatment with modafinil 200 mg 1 tablet in the morning. With this medication presently no headaches and no any other possible side effects. Patient is able to control her alertness during the day, sometimes feels sleepy nice afternoon. [place] sleepiness scale is increased to 16. MEDICATIONS: Please see below During physical exam: GENERAL: A pleasant patient without any distress. VITAL SIGNS: Please see below. HEENT: PERRLA, EOMI. NECK: Supple. No JVD. LUNGS: Clear to percussion and to auscultation. Good air exchange. No wheezing or rhonchi. HEART: S1, S2 regular. ABDOMEN: Soft and nontender. EXTREMITIES: No clubbing or cyanosis. QUARTZ CUTTER: Awake, alert, and oriented x3. No focal deficit. Impressions: 1. Narcolepsy type II 2. History of sleep paralysis. 3. History of cervical cancer treated by LEEP. 4. History of allergy and nasal problems. Plan: 1. Patient will continue treatment with modafinil 200 mg once a day in the morning 2. Sleep hygiene with regular time in bed for at least 8 hours. 3. Daytime naps permitted 4. Precautions related to driving. No driving if feel any sleepiness. Patient is aware about civil and criminal liability for unsafe driving, promised to follow recommendations. 5. Follow up visit in 4-6 months or earlier if patient has any problems. Thank you very much for allowing me to participate in the management of your patient. Panda Ruiz MD, PhD, FAASM. Diplomat of [place] [employer], Sleep Medicine Board by [place] [employer] Management Teacher of [facility] [place] Objective - Vital Signs Vital Signs: Vital Signs Temp 97.9 F 11/24/24 11:12 Pulse 80 11/24/24 11:12 Resp 16 11/24/24 11:12 BP 132/80 11/24/24 11:12 Pulse Ox 99 11/24/24 11:12 FiO2 Intake & Output 11/23/24 11/24/24 11/24/24 18:59 06:59 18:59 Weight 79.379 kg Home Medications: Home Medications Medication Instructions Recorded Confirmed Type Cholecalciferol [Vitamin D3] 1,000 unit PO DAILY 03/24/16 06/22/21 History Dextroamphetamine/Amphetamine 10 mg PO DAILY 03/24/16 06/22/21 History [Adderall] Pnv,Calcium 72/Iron/Folic Acid 15 each PO DAILY 03/24/16 06/22/21 History [ Plus Tablet] Ibuprofen [Motrin] 600 mg PO Q6HR PRN 30 Days #40 tab 06/24/21 Rx Dextroamphetamine/Amphetamine 10 mg PO DAILY 30 Days #30 tab 05/28/22 Rx [Adderall] Dextroamphetamine/Amphetamine 10 mg PO DAILY 30 Days #30 cap 06/12/22 Rx [Adderall Xr 10 mg Capsule] Dextroamphetamine/Amphetamine 10 mg PO DAILY 30 Days #30 tab 11/12/22 Rx [Adderall] modafiniL [Provigil] 200 mg PO DAILY 10/01/23 11/24/24 History Azelastine HCl [Astelin Nasal 137 mcg NASAL BID 11/24/24 11/24/24 History [place]] Fluticasone Nasal [place] [Flonase 2 spray EA NOSTRIL DAILY 11/24/24 11/24/24 History Nasal [place]] Levocetirizine Dihydrochloride 5 mg PO DAILY 11/24/24 11/24/24 History [Xyzal]
== END ==
LOC: 3 N SLEEP 11:00
PROVIDERS: ATTEND Internal Medicine
DX: G47.419 Narcolepsy without cataplexy (principal); Z86.69 Personal history of other diseases of the nervous system and sense organs; Z85.41 Personal history of malignant neoplasm of cervix uteri; Z87.09 Personal history of other diseases of the respiratory system; Z88.2 Allergy status to sulfonamides; Z88.8 Allergy status to other drugs, medicaments and biological substances
CPT/HCPCS: 99212